=== PATIENT | female | born 1955 | race Caucasian/White ===

== ENCOUNTER 2018-03-06 15:59 | Emergency (ER) | payer OTHER ==
--- NOTE | 2018-03-06 16:11 | EDPHY ---
H & P Source: Patient, EMS Exam Limitations: No limitations Time Seen by Provider: 03/06/18 16:07 HPI/ROS: HPI: This is a 63-year-old female who presents with Chief Complaint: fall R shoulder injury dislocation vs humeral fx Location: Right shoulder Quality: Injury Duration: 1 hr prior to arrival Signs and Symptoms: No bleeding, no radiation, no numbness, no weakness, no tingling, no incontinence, + decreased range of motion, no swelling, + pain, no fever Timing: Acute Severity: 10 out 10 Context: Patient was cross-country skiing when she hit a rock with her ski and she fell forward. She reports that she fell on her outstretched right hand. She then felt immediate, constant, moderate, nonradiating pain in her right anterior lateral shoulder. She had decreased range of motion inability to raise her arm over her head. Denies LOC/head injury/neck pain/dizziness/nausea/ vomiting/amnesia. She ate lunch around 12 noon. Modifying Factors: EMS gave her 100 mcg of fentanyl and Zofran 1 hour prior to arrival Comment: ROS: A comprehensive 10 system review of systems is otherwise negative aside from elements mentioned in the history of present illness. MEDICAL/SURGICAL/SOCIAL HISTORY: Medical history: Generally healthy. Does not take any regular medications. Surgical history: Denies Social history: Denies alcohol, drug, tobacco use. CONSTITUTIONAL: Moderate distress elderly white female, awake and alert HEENT: Atraumatic and normocephalic. NECK: supple, no midline tenderness, flexion 45 degrees, extension 45 degrees, right and left lateral flexion 45 degrees. No meningismus. Cardiovascular: Normal S1/S2, regular rate, regular rhythm, without murmur rub or gallop. PULMONARY/CHEST: Symmetrical and nontender. no crepitus. Clear to auscultation bilaterally. Good air movement. No accessory muscle usage. ABDOMEN: Soft, nondistended, nontender, no ecchymosis. PELVIC: no pain with rocking; bilateral hips flexion 125 degrees, extension 30 degrees, with no pain internal rotation and no pain external rotation. BACK: No midline tenderness, no paraspinous spasm, deep tendon reflexes 2/2, no pain with straight leg raise, No foot drop. Achilles reflexes are equal bilaterally. Able to walk on heels and toes without difficulty. EXTREMITIES: 2/2 pulses, strength 5/5, patient's right arm held in ABduction with shoulder lacking normal rounded contour. Difficulty inability to touch ipsilateral arm to contralateral shoulder. no Tenderness to palpation over AC joint. Right ELBOW: Full extension to 180, flexion to 150, no tenderness over medial epicondyle, no tenderness over lateral epicondyle, no effusion. Right WRIST: Extension to 70, flexion to 80, radial deviation to 20 degree, ulnar deviation to 30, no scaphoid tenderness, no tenderness over ulnar styloid , no tenderness over radial styloid. DIP/PIP/MCP flexion/extension intact with good light touch sensation. no deformities, no clubbing, no cyanosis or edema. NEUROLOGICAL: no focal neuro deficits. GCS 15. Light touch sensation intact. SKIN: Warm and dry, no erythema. no rash. Good capillary refill. (Lou Fraser) Constitutional: Initial Vital Signs Temperature (C) 37.0 C 03/06/18 16:12 Heart Rate 58 L 03/06/18 16:12 Respiratory Rate 18 03/06/18 16:12 Blood Pressure 133/86 H 03/06/18 16:12 O2 Sat (%) 97 03/06/18 16:12 O2 Delivery Mode [Post Nasal Cannula Procedure 3rd] O2 Delivery Mode [Post Nasal Cannula Procedure 2nd] O2 Delivery Mode [Post Nasal Cannula Procedure 1st] O2 Delivery Mode [Procedural Non-Rebreather Mask 2nd] O2 Delivery Mode [.Immediate Nasal Cannula Pre-Procedure] O2 Delivery Mode [Procedural Non-Rebreather Mask 1st] O2 Delivery Mode Room Air O2 (L/minute) [Post Procedure 2 3rd] O2 (L/minute) [Post Procedure 3 2nd] O2 (L/minute) [Post Procedure 3 1st] O2 (L/minute) [.Immediate Pre- 2 Procedure] O2 (L/minute) [Procedural 1st] 15 O2 (L/minute) 2 Allergies/Adverse Reactions: codeine Allergy (Verified 03/06/18 16:12) Home Medications: Medication Instructions Recorded Ondansetron Odt [Zofran Odt 4 mg 4 mg PO Q4 PRN #20 tab 03/06/18 (RX)] oxyCODONE/APAP 5/325 [Percocet 1 - 2 tab PO Q4H PRN #20 tab 03/06/18 5/325 (*)] Medical Decision Making Procedures: Procedure: Procedural sedation. Indication: Shoulder dislocation. A pre-sedation evaluation was completed on the patient just prior to the procedure. Patient is an appropriate candidate for procedural sedation with ASA class E. The risks of the sedation were discussed including but not limited to dysrhythmia, need for airway intervention or general anesthesia, disability, ; and verbal consent obtained. A timeout was observed and patient's identity confirmed. The patient was sedated with IV propofol 50 mg and IV ketamine 50 mg. The patient was monitored with continuous pulse oximetry , capnography, and color television console monitor. There were no complications and no significant hypoxemia. Dr. Peña remained at the bedside for the sedation. The total time I spent in the procedural sedation was 37. Procedure: Dislocation reduction. The dislocation of the right shoulder was reduced using Milch technique without complications. Post reduction the patient's neurovascular exam is normal. Post reduction x-ray demonstrates reduction of the joint to the anatomic position. The procedure was performed by myself and with Dr. Peña. Procedure: Splint placement. A right sling and swath was applied. After application of the splint I returned and re-examined the patient. The splint was adequately immobilizing the joint and distal to the splint the patient's circulation and sensation was intact. (Lou Fraser) ED Course/Re-evaluation: Vital signs reviewed and stable upon arrival. Right shoulder x-ray ordered before reduction to evaluate for fracture due to advanced age and mechanism of fall. 1640: Very difficult to obtain x-rays at bedside due to pain. 100 mcg of fentanyl given. X-rays show a humeral neck fracture but unable to completely visualize. Will go ahead and obtain CT of the shoulder as well as IV access and laboratory studies. 1647: Given IV Dilaudid 2 mg and IV Valium 5 mg. Placed on bus monitor. ED decision to consult Orthopedics. Spoke with Dr. Morgan reviewed the films and reports that it is a greater tuberosity fracture and can be reduced in the emergency room and placed in sling with follow-up with him. 1730: Right shoulder hematoma block with 10 cc of 1% lidocaine without epinephrine and Conscious sedation used and anterior shoulder dislocation reduced with Dr. Peña. No signs of neurovascular compromise/tenting of skin/compartment syndrome/ extremities and joints examined above and below area of concern and are neurovascularly intact. This patient was seen under the supervision of my secondary supervising physician. Discussed this patient with Dr. Peña who did see the patient. (Lou Fraser) 8:00 p.m. the patient has recovered well. She is ambulating without difficulty. She still feels somewhat nauseous when she ambulates. She would prefer to go home. She understands that it may take a day or so to recover from the ketamine and the nausea. She will follow up as planned. We discussed indications for returning (Glenn Peña) Differential Diagnosis: Differential diagnosis includes but is not limited to anterior dislocation, posterior dislocation, axillary nerve injury, rotator cuff injury, humeral fracture, clavicle fracture, labral tear. (Lou Fraser) - Data Points Laboratory Results: Laboratory Results 03/06/18 16:45 03/06/18 16:45 Medications Given: Discontinued Medications Diazepam (Valium) 10 mg IVP EDNOW ONE Stop: 03/06/18 16:47 Last Admin: 03/06/18 16:52 Dose: 10 mg Fentanyl (Sublimaze) 100 mcg IVP EDNOW ONE Stop: 03/06/18 16:14 Last Admin: 03/06/18 16:23 Dose: 100 mcg Hydromorphone HCl (Dilaudid) 2 mg IVP EDNOW ONE Stop: 03/06/18 16:47 Last Admin: 03/06/18 17:18 Dose: 2 mg Ketamine HCl (Ketamine) 50 mg IVP EDNOW ONE Stop: 03/06/18 17:03 Last Admin: 03/06/18 18:14 Dose: 50 mg Ondansetron HCl (Zofran Odt 4 Mg Prepack#2) 1 btl TAKEHOME EDNOW ONE Stop: 03/06/18 20:25 Last Admin: 03/06/18 20:28 Dose: 1 btl Oxycodone/Acetaminophen (Percocet 5/325) 2 tab PO EDNOW ONE Stop: 03/06/18 21:45 Last Admin: 03/06/18 21:51 Dose: 2 tab Propofol (Diprivan) 50 mg IVP EDNOW ONE Stop: 03/06/18 17:03 Last Admin: 03/06/18 18:14 Dose: 50 mg Departure - Departure Disposition: Home, Routine, Self-Care Clinical Impression: Anterior dislocation of right shoulder Qualifiers: Encounter type: initial encounter Qualified Code(s): S43.014A - Anterior dislocation of right humerus, initial encounter Greater tuberosity of humerus fracture Qualifiers: Encounter type: initial encounter Fracture type: closed Fracture alignment: displaced Laterality: right Qualified Code(s): S42.251A - Displaced fracture of greater tuberosity of right humerus, initial encounter for closed fracture Condition: Good Instructions: Oxycodone/Acetaminophen (By mouth), Ondansetron (By mouth), Arm Fracture in Adults (ED), Shoulder Dislocation (ED), ORIF of an Arm Fracture (DC) , How to Use a Sling (ED), Proximal Humerus Fracture (ED) Additional Instructions: Wear the sling except to shower until seen by Orthopedics. Take Tylenol 650 mg every 4 hours and/or Ibuprofen 600 mg every 8 hours with food as needed for pain. Use Percocet every 6 hours as needed for severe/break through pain. Do not use Tylenol and Percocet concomitantly. Apply ice for 30 minutes at a time; 2-3 times per day for the next 1-2 days. Follow up with Orthopedics on Friday at which time they will evaluate and recommend with you if conservative management versus surgery is indicated. Please call Dr. Morgan's office on Friday for appointment date and time on Friday Return to the ER immediately if you experience new or worsening pain, discoloration, numbness, tingling, or any other symptoms that concern you. Referrals: Joel Morgan MD [Medical Doctor] - As per Instructions Prescriptions: Ondansetron Odt [Zofran Odt 4 mg (RX)] 4 mg PO Q4 PRN #20 tab PRN Reason: Nausea & Vomiting oxyCODONE/APAP 5/325 [Percocet 5/325 (*)] 1 - 2 tab PO Q4H PRN #20 tab PRN Reason: Pain, Severe
[2018-03-06] MEDS ORDERED: fentaNYL 100 MCG/2 ML INJ IVP ONE (16:13)
[2018-03-06] MEDS ORDERED: HYDROmorphONE/DILAUDID 2 MG/ML INJ IVP ONE (16:46)
[2018-03-06] MEDS ORDERED: DIAZEPAM 5 MG/ML 1 ML SYR IVP ONE (16:46)
[2018-03-06] MEDS ORDERED: PROPOFOL 200 MG/20 ML VIAL IVP ONE (17:02)
[2018-03-06] MEDS ORDERED: KETAMINE 200 MG/20 ML VIAL IVP ONE (17:02)
[2018-03-06] MEDS ORDERED: ONDANSETRON 4MG PREPACK#2 BTL TAKEHOME ONE (20:24)
[2018-03-06] MEDS ORDERED: OXYCODONE/APAP 5/325 TAB PO ONE (21:44)
[2018-03-06 21:57] VITALS: BP 130/80
== END 2018-03-06 21:57 | disposition home or self-care (01) ==
LOC: EDUNIT#
PROC: 0RSJXZZ Reposition Right Shoulder Joint, External Approach (ICD-10-PCS; principal; 2018-03-06)
DX: S43.014A Anterior dislocation of right humerus, initial encounter (principal); S42.251A Displaced fracture of greater tuberosity of right humerus, initial encounter for closed fracture; V00.321A Fall from snow-skis, initial encounter; Y93.24 Activity, cross country skiing; Y92.828 Other wilderness area as the place of occurrence of the external cause; Y99.8 Other external cause status
CPT/HCPCS: 96374; J1170; J2704; J3010; J3360